=== PATIENT | female | born 1940 ===

== ENCOUNTER 2018-11-23 13:01 | Outpatient (CLI) | payer SELFPAY | END 2018-11-23 13:02 | disposition EMS.NT | LOC: EMS 13:01 | PROVIDERS: ATTEND Surgery | DX: S09.93XA Unspecified injury of face, initial encounter (principal); M79.645 Pain in left finger(s); W18.39XA Other fall on same level, initial encounter; Y93.01 Activity, walking, marching and hiking; Y92.480 Sidewalk as the place of occurrence of the external cause ==